=== PATIENT | female | born 1950 | race Hispanic/Latino ===

== ENCOUNTER 2018-09-11 21:04 | Emergency (ER) | payer OTHER ==
[2018-09-11] MEDS ORDERED: FLUCONAZOLE 100 MG TAB ONE (22:00)
[2018-09-11] MEDS ORDERED: LIDOCAINE HCL 2% VISCOUS 15 ML UDCUP ONE (22:00)
== END 2018-09-11 22:16 | disposition home or self-care (01) ==
LOC: EDH 21:04
DX: N89.8 Other specified noninflammatory disorders of vagina (principal); L29.2 Pruritus vulvae